=== PATIENT | female | born 1950 | race Caucasian/White ===

== ENCOUNTER → 2017-08-25 | Outpatient (CLI) | payer MEDICARE ==
[~2017-08-25] MED LIST: ASPI-183 PO; COMMODE 3-IN-11 MIS; EZET10 PO; LEVO200T4 PO; LEVO88TA2 PO; MELA5 PO; PANT20TA2 PO; PROT40TA PO; PROZ20CA11 PO; RIVA10 PO; TRAM50 PO; WALKER WHEELS/F1 MIS; Z.0.COMMODE-3:1; Z.0.WALKERFRONT
--- NOTE | 2017-08-25 12:54 | RADRPT ---
EXAM DATE/TIME: 08/25/2017 12:23 [facility] COMPARISON: No previous studies available for comparison. INDICATIONS : Evaluate for pneumonia, pneumothorax or communicable disease. Preop chest for knee replacement on 08/20 06/08. No chest complaints at this time MEDICAL HISTORY : None. SURGICAL HISTORY : shoulder replaced, hip replaced ENCOUNTER: Initial ACUITY: 1 day PAIN SCORE: Non-responsive. LOCATION: Right hip FINDINGS: PA and lateral views of the chest demonstrate the lungs to be symmetrically aerated without evidence of mass, infiltrate or effusion. The cardiomediastinal contours are unremarkable. S-shaped scoliosis and disc centered degenerative changes seen of the spine. CONCLUSION: No evidence of acute cardiopulmonary disease. Scoliosis and degenerative changes of the spine. Catrachito Pike MD on August 25, 2017 at 12:51 Board Certified Radiologist. This report was verified electronically.
[2017-08-25 13:00] LABS: AUTOMATED NEUTROPHIL # 4.5 TH/MM3 (1.8-7.7); BASOPHIL # 0.1 TH/MM3 (0-0.2); BASOPHIL % 0.8 % (0.0-2.0); EOSINOPHIL # 0.2 TH/MM3 (0-0.4); HEMATOCRIT 37.2 % (35.0-46.0); HEMOGLOBIN 13.2 GM/DL (11.6-15.3); LYMPH % 26.8 % (9.0-44.0); MEAN CORPUSCULAR HEMOGLOBIN 32.6 PG (27.0-34.0); MEAN CORPUSCULAR HGB CONC 35.4 % (32.0-36.0); MEAN PLATELET VOLUME 8.1 FL (7.0-11.0); MONOCYTE # 0.7 TH/MM3 (0-0.9); NEUT % 60.4 % (16.0-70.0); PLATELET COUNT 245 TH/MM3 (150-450); RED BLOOD COUNT 4.04 MIL/MM3 (4.00-5.30); WHITE BLOOD COUNT 7.5 TH/MM3 (4.0-11.0)
[2017-08-25 13:02] LABS: PROTHROMBIN TIME - PATIENT 9.7 SEC (9.8-11.6)
[2017-08-25 13:15] LABS: BICARBONATE 28.1 MEQ/L (21.0-32.0); CALCIUM 9.2 MG/DL (8.5-10.1); CREATININE 0.81 MG/DL (0.50-1.00)
[2017-08-25 13:22] LABS: BILIRUBIN, URINE NEG (NEG); BLOOD, URINE NEG (NEG); GLUCOSE,URINE NEG (NEG); KETONE, URINE NEG (NEG); NITRITE,URINE NEG (NEG); SQUAMOUS EPITHELIAL CELL URINE 3 /hpf (0-5); URINE LEUKOCYTE ESTERASE NEG (NEG)
[2017-08-25 13:24] LABS: URINE COLOR STRAW (YELLW/STRAW)
== END ==
LOC: CPRE 11:12
PROVIDERS: ATTEND Orthopaedic Surgery
DX: Z01.812 Encounter for preprocedural laboratory examination (principal); Z01.811 Encounter for preprocedural respiratory examination; M79.609 Pain in unspecified limb; M16.11 Unilateral primary osteoarthritis, right hip
CPT/HCPCS: 36415; 71046; 80048; 81001; 85025; 85610

== ENCOUNTER 2017-08-30 05:21 | Inpatient (IN) | payer MEDICARE ==
--- NOTE | 2017-08-12 12:20 | MH ---
cc: Chapito Bland MD DATE OF ADMISSION: 08/30/2017 SCHEDULED ADMISSION: August, ADMITTING DIAGNOSIS: Severe osteoarthritis of the right hip, pain right hip, gait disturbance. HISTORY: The patient is a 67-year-old white female who was admitted to [facility] in September of 2014 following a 5-year history of severe pain of her left hip as related to osteoarthritis. She underwent a left total hip arthroplasty at that time, which was completed in an uncomplicated manner for which the patient was noted to have done quite well, completing her postoperative rehabilitation and able to resume routine activities. On or about that time she was having some minimal discomfort of her right hip but it was not interfering with her daily routine. She presented to the office in July of this year indicating that she was having rather significant pain involving her right hip, reporting that in December of the previous year she had initiated employment as a waiter/waitress captain where the responsibilities of her job included prolonged standing activities. With the passage of time, she was having increasing difficulty, conforming with this routine that interfered with all weightbearing activities and created difficulty as she conformed to her daily routine, being unable to flex her hip such as in tying her shoes. She had been taking Aleve with limited benefit being noted. She was also aware of a numb and tingling sensation extending into her left foot. She denied any bowel or bladder incontinence. She had to suspend her employment activities because of the increasing pain involving her right hip. At the time of her office evaluation, X-ray studies were completed, which revealed severe degenerative changes of her right hip with pronounced hypertrophic reaction along the margins of the femoral head, both superiorly and inferiorly. These findings were reviewed with the patient and treatment options were reviewed. The pros and cons of continued conservative management versus operative intervention that would involve total hip arthroplasty were outlined in detail. Emphasis was made regarding the fact that the decision to proceed with surgery would be left entirely to the patient's discretion. The patient reported that, based upon her previous experience as related to the process of treatment involving her left hip and subsequent operative intervention with very favorable response being noted, she felt that similar treatment involving her right hip would be the more favorable course of management for long-term benefit and expressed her desire to proceed with surgery at this time. In compliance with her wishes, she was scheduled for admission in order that the above be accomplished. PAST MEDICAL HISTORY, HOSPITALIZATIONS AND SURGERIES: In addition to her left total hip arthroplasty include right rotator cuff repair subsequently resulting in a right reverse shoulder arthroplasty, laparoscopic cholecystectomy, tonsillectomy, D and C and colonoscopy. MEDICAL ILLNESSES: Include hypothyroidism, depression, elevated cholesterol. CURRENT MEDICATIONS: 1. Levothyroxine 88 mcg daily. 2. Fluoxetine 20 mg daily. 3. Ezetimibe 10 mg daily. 4. Pantoprazole 40 mg daily. ALLERGIES: The patient describes DRUG ALLERGIES TO SULFA AND CODEINE which has caused nausea, vomiting and a fatigue sensation. She has experienced significant diarrhea as associated with IRON SUPPLEMENT. She has tolerated morphine for pain management. REVIEW OF SYSTEMS: Wears glasses. No headache, seizure, or syncope. No sinus congestion or epistaxis. Auditory acuity intact. No tinnitus. No bleeding gums or dysphagia. Denies cough, shortness of breath, upper respiratory infection, pneumonia, or tuberculosis. No angina or heart disease. Appetite good. Bowel movements regular. There is a history of ulcers, status post cholecystectomy. No hemorrhoids. Previous urinary tract infection, no kidney stones. No history of fractures. No psychiatric illness. Remaining review of systems is unremarkable and noncontributory. FAMILY HISTORY: The patient is for 23 years. Her is 60 years of age and described as being in good health. She has 2 sons and 2 daughters, all of whom are indicated to be in good health. Her family history is positive for diabetes, heart disease, black lung disease and dementia. SOCIAL HISTORY: The patient completed a high school education. She is employed as a waiter/waitress captain. Denies active use of tobacco. Ethanol consumption on a limited and occasional basis. PHYSICAL EXAMINATION: VITAL SIGNS: Height 5, feet 5 inches, weight 183 pounds. GENERAL: This is an alert, oriented, and responsive 67-year-old white female who sits quietly upon the examination table with no apparent distress. HEAD, EARS, EYES, NOSE, AND THROAT: Pupils are equally round and reactive to light. Extraocular movements full. Sclerae are clear. External nares clear. External auditory canals clear. Dental intact. Mucous membranes pink and moist. Pharynx clear. NECK: Supple active range of motion with no appreciable pain. Carotid pulse is palpable bilaterally. Trachea midline. Thyroid without thyroid enlargement. LUNGS: Clear to auscultation and percussion. BACK: :No CVA tenderness. No discomfort throughout the dorsolumbar spine. HEART: Regular rate and rhythm. No murmur or gallop. ABDOMEN: Soft, nontender, bowel sounds present. PELVIC: Per primary care physician. EXTREMITIES: Right hip: There is no localizing tenderness about the lateral aspect of the hip area. There is limited and restricted mobility of the hip joint in all ranges assessed with pain at the extremes of motion. Discomfort is most pronounced with internal rotation and abduction maneuvering. No sensation of crepitation or instability. Straight leg raising unremarkable at 80 degrees. Brendan sign positive. Distal sensory grossly intact. Antalgic gait. NEUROLOGIC: Cranial nerves II through XII grossly intact. IMPRESSION: Severe osteoarthritis of the right hip, pain right hip, gait disturbance. PLAN: Right total hip arthroplasty. The nature of the planned surgical procedure, the potential complications and risks associated, the expectations of surgery and the consent form were once again reviewed with the patient in the presence of her . Isabel has indicated her full understanding regarding all of the above and given consent to proceed with treatment as outlined. Medical evaluation and clearance for surgery will be completed by her primary care physician, Dr. Humberto Jefferson. Chapito Bland MD NBS/SB , 11:42 AM , 12:19 PM
[~2017-08-30] VITALS: Ht 160 cm; Wt 83.7 kg
[~2017-08-30 05:21] MED LIST changes: -ASPI-183 PO; -COMMODE 3-IN-11 MIS; -LEVO88TA2 PO; -PROT40TA PO; -RIVA10 PO; -TRAM50 PO; -WALKER WHEELS/F1 MIS; -Z.0.COMMODE-3:1; -Z.0.WALKERFRONT
[2017-08-30] MEDS ORDERED: ACETAMINOPHEN 1000 MG/100 ML 100 ML IV ONE (05:44)
[2017-08-30] MEDS ORDERED: CHLORHEXIDINE GLUCONATE 2 % 1 PACK (2 CLOTHS) TOPICAL PRN (06:15)
[2017-08-30] MEDS ORDERED: ceFAZolin 2 GM/NS PREMIX 100 ML IV SCH (06:15)
[2017-08-30] MEDS ORDERED: METOPROLOL TARTRATE 25 MG TAB PO PRN (06:15)
[2017-08-30] MEDS ORDERED: SODIUM CHLORID 0.9% 500 ML IV PRN (06:15)
[2017-08-30] MEDS ORDERED: POVIDONE IODINE 5% (ANTISEPSIS KIT) 4 APPLICATIONS EACH NARE PRN (06:15)
[2017-08-30] MEDS ORDERED: LACTATED RINGER'S 1000 ML IV PRN (06:15)
[2017-08-30] MEDS ORDERED: POVIDONE IODINE 7.5% SCRUB 118 ML BOTTLE TOPICAL SCH (06:15)
[2017-08-30] MEDS ORDERED: ceFAZolin INJ 1,000 MG VIAL ONE (06:18)
[2017-08-30] MEDS ORDERED: APREPITANT 40 MG CAP ONE (06:34)
[2017-08-30] MEDS ORDERED: TRANEXAMIC ACID 1 GM PRIOR TO PROCEDURE IV SCH ×2 (07:00)
[2017-08-30] MEDS ORDERED: DO NOT ADM ANY ANTICOAGULANT DRUGS PRN (09:22)
[2017-08-30] MEDS ORDERED: MIDAZOLAM HCL 2 MG/2 ML VIAL ONE (09:27)
--- NOTE | 2017-08-30 09:28 | HHI.FF ---
Face to Face Verification Diagnosis: (1) Degenerative joint disease (DJD) of hip Physical Therapy Gait training Hip: Total hip, Protocol: Right, Abduction pillow while in bed Right LE Weight Bearing: WB as tolerated Right LE Range of Motion: Active ROM Nursing Dressing Changes: Daily dressing change I have seen patient Isabel aCraballo on 08/30/17. My clinical findings support the need for the requested home health care services because: Limited ability to care for self High risk of falls I certify that my clinical findings support that this patient is homebound because: Post-op weakness Unsteady gait/balance Unsafe to leave home unassisted Chapito Bland MD Aug 30, 2017 09:28
[2017-08-30] MEDS ORDERED: TRANEXAMIC ACID INJ 1,000 MG in SODIUM CHLORIDE 0.9% INJ 100 ML IV SCH (09:30)
[2017-08-30] MEDS ORDERED: MISCELLANEOUS PHARMACY INFORMATION XX SCH (09:30)
[2017-08-30] MEDS ORDERED: ONDANSETRON HCL 4 MG/2 ML VIAL IVP PRN (09:30)
[2017-08-30] MEDS ORDERED: ACETAMINOPHEN 325 MG TAB PO PRN (09:30)
[2017-08-30] MEDS ORDERED: DOCUSATE SODIUM 100 MG CAP PO PRN (09:30)
[2017-08-30] MEDS ORDERED: NALOXONE HCL 0.4 MG/ML AMP IV PUSH PRN (09:30)
[2017-08-30] MEDS: DEXT 5%-NACL 0.45% 1000 ML INJ 1,000 ML IV SCH ×3 (09:50→19:35)
[2017-08-30] MEDS ORDERED: Post-op Orders (for Pharmacy) XX ONE (10:00)
[2017-08-30] MEDS ORDERED: TRANEXAMIC ACID 1 GM POST-OP IV SCH ×2 (10:00)
[2017-08-30] MEDS ORDERED: MORPHINE SULFATE 30 MG/30 ML PCA IV SCH (10:00)
--- NOTE | 2017-08-30 10:11 | MP ---
cc: Chapito Bland MD DATE OF OPERATION: 08/30/2017 PREOPERATIVE DIAGNOSIS: Severe osteoarthritis of the right hip, pain right hip, gait disturbance. POSTOPERATIVE DIAGNOSIS: Severe osteoarthritis of the right hip, pain right hip, gait disturbance. PROCEDURE PERFORMED: Right total hip arthroplasty. SURGEON: Chapito Bland MD ANESTHESIA: General endotracheal. INDICATIONS: A 67-year-old white female who was admitted to the hospital in September 2014 following a 5-year history of severe left hip pain as related to osteoarthritis. At that time, she underwent a left total hip arthroplasty being completed in an uncomplicated manner and the patient having done well thereafter. She completed her postoperative rehabilitation and was able to resume routine activities. On or about that time, she began noting some mild discomfort of her right hip, but at that time was not interfering with her daily routine. She presented to the office in July of this year, indicating that with the passage of time, she was becoming increasingly more symptomatic with pain that was aggravated by weightbearing activities. 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 She has been taking Aleve with limited benefit and she was also aware of a numb and tingling sensation extending into her left foot. She denied any bowel or bladder incontinence. She had to suspend her employment because of increasing pain about her right hip. Her x-ray studies revealed severe degenerative changes of her right hip with pronounced hypertrophic reaction along the margins of the femoral head, both superiorly and inferiorly. The findings were reviewed and treatment options discussed. The pros and cons of continuing with conservative management versus operative intervention involving total hip arthroplasty were outlined. Emphasis was made regarding the fact that the decision to proceed with surgery would be left entirely to the patient's discretion. The patient reported that, based upon her previous experience as related to the process of and treatment involving her left hip and subsequent operative intervention, she was inclined to proceed with operative treatment at this time, being the more favorable course for long-term management. In compliance with her wishes, she was scheduled for admission in order that the above be accomplished. FORMAT: Following the induction of satisfactory general anesthesia by endotracheal intubation as completed per the Department of Anesthesia, the patient was positioned upon the operating table in a left lateral decubitus fashion. The right hip and lower extremity proper were isolated with a U-drape, thereafter being prepped with Betadine solution and draped into a sterile field in the routine manner. Prior to initiation of the actual procedure, the standard timeout protocol was completed. All parameters were appropriately addressed and confirmed by operating room personnel. A standard posterolateral approach to the hip was initiated through a sharp skin incision and developed through underlying subcutaneous tissue with hemostasis maintained by electrocautery. By deepening dissection, the fascia overlying the gluteus musculature was exposed and thereafter sharply incised to the limits of the incision. The underlying gluteus fibers were bluntly divided and by progressive dissection. The short external rotators were identified. The piriformis tendon was utilized as an anatomical landmark and division of these structures was completed in a superior to inferior orientation and reflected medially, exposing the posterior capsule. The sciatic nerve was protected. An L-shaped capsulotomy was accomplished through which a posterior dislocation of the femoral head was completed. Examination revealed severe degenerative changes with significant erosion of articular cartilage and hypertrophic reaction along the margins of the femoral head. The femoral template was positioned for alignment orientation. The neck was scored and thereafter divided with power saw, the amputated segment being passed to the back table as surgical specimen. Attention was initially directed to the proximal femur. Cancellous bone was harvested. The tapered reamer was inserted for alignment orientation. Sequential rasping and broaching was accomplished from 7 through 9 mm with the calcar radha being utilized at the 9 mm stage. The 9 mm stem was determined to be a favorable fit. The trial component being removed, attention was redirected to the acetabulum. The labrum and reactive soft tissue were sharply excised. Progressive reaming was accomplished from 46 through 49 mm. The 50 mm trial shell was positioned and determined to be satisfactory. With all trial components being removed, the wound was copiously irrigated with pulsating antibiotic solution, hemostasis maintained by electrocautery. Harvested cancellous bone was digitally impacted into the depths of the acetabulum and thereafter a 50 mm RingLoc acetabular shell was firmly seated in approximately 45 degrees inclination to the horizontal and slight anteversion. A single 25 mm, 6.5 cancellous screw was inserted superiorly to augment fixation. The permanent high wall acetabular liner was attached to the acetabular shell. Attention returned to the proximal femur. The canal was irrigated and dried and thereafter, the size 9 trial femoral broach was repositioned and a trial reduction followed utilizing a 36 mm modular head with -6 mm neck length adaptor. The hip readily reduced and was carried through a passive range of motion with stability demonstrated at 90 degrees flexion and 45 degrees internal rotation. An open dislocation was completed, the trial components being removed, the canal was thoroughly irrigated and dried and thereafter, the permanent size 9 Echo Bi-[employer] hip standard femoral stem was firmly seated to which, a 36 mm ceramic head with -6 mm neck length adapter was attached, open reduction completed and repeat range of motion again noted stability as previously described. Final irrigation was accomplished, hemostasis maintained by electrocautery. The posterior capsule was repaired with 0 Vicryl suture. Piriformis tendon and short external rotator structures were reapproximated in a similar fashion. Hemovac drain tubes were inserted through superior stab wounds. The fascia of the gluteus musculature was reapproximated with a running 0 Vicryl suture. The remaining portion of the wound was closed in layers in the routine manner, skin margins being reapproximated with a running subcuticular 3-0 Vicryl suture over which Steri-Strips were applied. Xeroform gauze and a bulky dry sterile dressing were placed. The patient was repositioned into a supine orientation where an abduction splint was attached. Anesthesia was discontinued and the patient thus transferred to a hospital stretcher and returned to the recovery room in satisfactory condition, having tolerated her operative procedure well. Estimated blood loss was approximately 250 mL as determined per Anesthesia. All implants were of the Biomet geophysical engineer. MD INA Caal/SB , 09:20 AM , 10:10 AM
--- NOTE | 2017-08-30 10:22 | RADRPT ---
EXAM DATE/TIME: 08/30/2017 09:35 [facility] COMPARISON: No previous studies available for comparison. INDICATIONS : Post op right hip surgery. MEDICAL HISTORY : None. SURGICAL HISTORY : None. Shoulder replaced. Bilateral hip replaced. ENCOUNTER: Initial ACUITY: 1 day PAIN SCORE: Non-responsive. LOCATION: Right hip. FINDINGS: The patient is status post right total hip replacement with prosthesis in good position. No fracture or dislocation is noted. CONCLUSION: Status post right total hip replacement with prosthesis in good position. Kaleb Cain MD on August 30, 2017 at 10:18 Board Certified Radiologist. This report was verified electronically.
[2017-08-30] MEDS ORDERED: ROCURONIUM INJ 50 MG/5 ML SYRINGE IV PUSH ONE (12:00)
[2017-08-30] MEDS ORDERED: LIDOCAINE HCL 1% PF 5 ML SYRINGE OTHER ONE (12:00)
[2017-08-30] MEDS ORDERED: ONDANSETRON HCL 4 MG/2 ML VIAL IV ONE (12:00)
[2017-08-30] MEDS ORDERED: NEOSTIGMINE 5 MG/5 ML SYRINGE IV PUSH ONE (12:00)
[2017-08-30] MEDS ORDERED: GLYCOPYRROLATE 1 MG/5 ML SYRINGE IV PUSH ONE (12:00)
[2017-08-30] MEDS ORDERED: PROPOFOL 200 MG/20 ML AMP IV ONE (12:00)
[2017-08-30] MEDS ORDERED: ePHEDrine/NS 25 MG/5 ML SYRINGE IV ONE (12:00)
[2017-08-30] MEDS ORDERED: DEXAMETHASONE SOD PHOS 4 MG/ML VIAL IV ONE (12:00)
[2017-08-30] MEDS ORDERED: LACTATED RINGER'S 1000 ML INJ 1,000 ML IV ONE (12:00)
[2017-08-30 12:56] VITALS: BP 114/54; PULSE 71; RESP 16; TEMP 97.2; O2SAT 98
[2017-08-30] MEDS: PCA - TOTAL MG MORPHINE DELIVERED PER SHIFT SCH ×2 (14:00→22:00)
--- NOTE | 2017-08-30 14:51 | PD.CONS ---
HPI Service [facility] Consult Requested By Primary Care Physician Humberto Jefferson M.D. Diagnoses: History of Present Illness Mrs. Caraballo is a 67-year-old female. She is admitted secondary to elective right total hip replacement. Baseline conditions or osteoarthritis, hypothyroidism, and hyperlipidemia. Patient has a past history of peptic ulcer disease. She is seen postop and doing well. No nausea or vomiting, pain is controlled. Vital signs are stable. Review of Systems Constitutional: DENIES: Fatigue, Fever, Chills Eyes: DENIES: Diplopia, Eye inflammation, Eye pain Ears, nose, mouth, throat: DENIES: Hearing loss, Vertigo, Nasal discharge Respiratory: DENIES: Cough, Wheezing, Hemoptysis, Shortness of breath Cardiovascular: DENIES: Chest pain, Palpitations, Syncope Gastrointestinal: DENIES: Abdominal pain, Black stools, Bloody stools Musculoskeletal: COMPLAINS OF: Joint pain, Stiffness, Joint Swelling Integumentary: DENIES: Abnormal pigmentation, Pruritus, Rash, Nail changes Hematologic/lymphatic: DENIES: Bruising, Lymphadenopathy Immunologic/allergic: DENIES: Eczema, Urticaria Neurologic: DENIES: Abnormal gait, Headache, Paresthesias Psychiatric: DENIES: Anxiety, Confusion, Hallucinations Past Family Social History Allergies: Coded Allergies: iron (Verified Allergy, Severe, Diarrhea, 08/30/17) Sulfa (Sulfonamide Antibiotics) (Verified Adverse Reaction, Mild, [place], 08/30/17) codeine (Verified Adverse Reaction, Mild, [place], 08/30/17) Past Medical History OA Hypothyroidism PUD HLP Past Surgical History Right rotator cuff surgery Reported Medications Reported Meds & Active Scripts Active Reported Melatonin 5 Mg Tab 5 Mg PO HS Levothyroxine (Levothyroxine Sodium) 200 Mcg Tab 200 Mcg PO DAILY Pantoprazole (Pantoprazole Sodium) 20 Mg Tab 20 Mg PO DAILY Prozac (Fluoxetine HCl) 20 Mg Cap 20 Mg PO DAILY Zetia (Ezetimibe) 10 Mg Tab 10 Mg PO DAILY Active Ordered Medications Administered Medications Medications (Trade) Dose Ordered Sig/Keyonna Route PRN Reason Start Time Stop Time Status Last Admin Dose Admin Lactated Ringer's 1,000 ml @ 30 mls/hr Q24H PRN IV SEE LABEL COMMENTS 08/30/17 06:15 09/02/17 06:14 08/30/17 05:45 Povidone Iodine (Betadine 5% Antisepsis Kit) 1 applic PROGRAM PARAPROFESSIONAL PRN EACH NARE SEE LABEL COMMENTS 08/30/17 06:15 09/02/17 06:14 08/30/17 05:45 Chlorhexidine Gluconate (Chlorhexidine 2% Cloth) 3 pack PROGRAM PARAPROFESSIONAL PRN TOPICAL SEE LABEL COMMENTS 08/30/17 06:15 09/02/17 06:14 08/30/17 05:30 Tranexamic Acid 1000 mg/Sodium Chloride 110 ml @ 220 mls/hr ONCE IV 08/30/17 07:00 08/30/17 21:00 08/30/17 07:11 Tranexamic Acid 1000 mg/Sodium Chloride 110 ml @ 220 mls/hr ONCE IV 08/30/17 10:00 08/30/17 21:00 08/30/17 10:42 Cefazolin/Sodium Chloride 100 ml @ 200 mls/hr ONCE IV 08/30/17 06:15 08/30/17 21:00 08/30/17 07:11 Dextrose/Sodium Chloride 1,000 ml @ 125 mls/hr Q8H IV 08/30/17 10:00 08/30/17 09:50 Cefazolin Sodium 1000 mg/Sodium Chloride 100 ml @ 200 mls/hr Q6H IV 08/30/17 13:00 08/31/17 01:29 08/30/17 14:31 Morphine Sulfate (Morphine 1 Mg/ ml KEYPUNCHER) 30 mg UNSCH IV 08/30/17 10:00 09/01/17 09:29 08/30/17 10:43 KEYPUNCHER Dosage Infused (Pha) 1 Q8HR .XX 08/30/17 14:00 08/30/17 14:00 Family History Myocardial infarction in mother Myocardial infarction in brother Alzheimer's disease in sister Social History No smoking Illicit drug abuse Occasional alcohol use Physical Exam Vital Signs Vital Signs Date Time Temp Pulse Resp B/P (MAP) Pulse Ox O2 Delivery O2 Flow Rate FiO2 08/30/17 14:00 16 08/30/17 12:56 97.2 71 16 114/54 (74) 98 08/30/17 12:54 81 15 98/56 (70) 100 Nasal Cannula 3 08/30/17 11:22 82 15 108/47 (67) 100 Nasal Cannula 3 08/30/17 10:43 16 08/30/17 09:45 74 15 116/61 (79) 100 Nasal Cannula 3 08/30/17 09:30 78 15 111/59 (76) 100 Nasal Cannula 3 08/30/17 09:21 98.6 75 15 114/57 (76) 100 Nasal Cannula 3 08/30/17 06:02 97.9 55 20 157/71 (99) 98 Physical Exam GENERAL: NAD, A&Ox3 HEAD: Normocephalic. NECK: Supple, trachea midline. No lymphadenopathy. EYES: No scleral icterus. No injection or drainage. CARDIOVASCULAR: Regular rate and rhythm without murmurs, gallops, or rubs. RESPIRATORY: Breath sounds equal bilaterally. No accessory muscle use. GASTROINTESTINAL: Abdomen soft, non-tender, nondistended. MUSCULOSKELETAL: No cyanosis, or edema. SKIN: Warm and dry. NEURO: No focal neurological deficitis. Imaging Last Impressions Hip X-Ray 08/30/[id number] Signed Impressions: Service Date/Time: Wednesday, August 30, 2017 09:35 - CONCLUSION: Status post right total hip replacement with prosthesis in good position. Kaleb Cain MD Assessment and Plan Problem List: (1) Aftercare following right hip joint replacement surgery ICD Code: Z47.1 - Aftercare following joint replacement surgery; Z96.641 - Presence of right artificial hip joint (2) Degenerative joint disease (DJD) of hip ICD Code: M16.9 - Degenerative joint disease (DJD) of hip Status: Acute Assessment and Plan 67-year-old female admitted secondary to elective right total hip Osteoarthritis Status post right total hip surgery Continue as needed pain treatments Continue physical therapy Orthopedic surgeons following Follow CBC in a.m. Hypothyroidism Continue baseline treatments Follows in outpatient Hyperlipidemia Continue present treatment Follow as an outpatient History of peptic ulcer disease Follow clinically DVT prophylaxis Deferred to surgical discretion Andrzej Smith MD Aug 30, 2017 14:51
[2017-08-30 16:00] VITALS: BP 112/58; PULSE 80; RESP 16; TEMP 97.4; O2SAT 98
[2017-08-30 16:52] VITALS: O2SAT 98
[2017-08-30] MEDS: ZOLPIDEM TARTRATE 5 MG TAB PO PRN (19:54)
[2017-08-30 20:15] VITALS: BP 109/54; PULSE 76; RESP 16; TEMP 98; O2SAT 97
[2017-08-30] MEDS ORDERED: MAGNESIUM HYDROXIDE SUSP 30 ML CUP PO PRN (23:00)
[2017-08-31] VITALS (8 sets, daily range): BP systolic 102–125; BP diastolic 55–75; PULSE 71–86; RESP 16–19; TEMP 97.3–98.3; O2SAT 95–99
[2017-08-31] MEDS: PCA - TOTAL MG MORPHINE DELIVERED PER SHIFT SCH ×3 (06:00→20:57)
[2017-08-31] MEDS ORDERED: ASPI-183 PO (06:24)
[2017-08-31] MEDS ORDERED: TRAM50 PO (06:24)
[2017-08-31] MEDS ORDERED: WALKER WHEELS/F1 MIS (06:31)
[2017-08-31] MEDS ORDERED: COMMODE 3-IN-11 MIS (06:31)
--- NOTE | 2017-08-31 09:34 | HHI.PR ---
Subjective Remarks Mrs. Caraballo is a 67-year-old female. She is admitted secondary to elective right total hip replacement. Baseline conditions or osteoarthritis, hypothyroidism, and hyperlipidemia. Patient has a past history of peptic ulcer disease. She is seen postop and doing well. No nausea or vomiting, pain is controlled. Vital signs are stable. 4-12 seen sitting in chair next to the bed NO CURRENT COMPLAINTS USING INCENTIVE SPIROMETRY DW RN AND PT AND CM LABS WILL GO TO SNF AFTER DC Objective Vitals Vital Signs Date Time Temp Pulse Resp B/P (MAP) Pulse Ox O2 Delivery O2 Flow Rate FiO2 08/31/17 07:32 97.8 83 19 125/58 (80) 96 08/31/17 06:00 17 08/31/17 04:15 97.6 86 16 125/59 (81) 98 08/31/17 00:10 97.3 71 16 102/75 (84) 95 08/30/17 22:00 18 08/30/17 20:15 98.0 76 16 109/54 (72) 97 08/30/17 19:34 97 Nasal Cannula 2.00 08/30/17 16:52 98 Nasal Cannula 2.00 08/30/17 16:00 97.4 80 16 112/58 (76) 98 08/30/17 14:00 16 08/30/17 12:56 97.2 71 16 114/54 (74) 98 08/30/17 12:54 81 15 98/56 (70) 100 Nasal Cannula 3 08/30/17 11:22 82 15 108/47 (67) 100 Nasal Cannula 3 08/30/17 10:43 16 08/30/17 09:45 74 15 116/61 (79) 100 Nasal Cannula 3 08/30/17 09:30 78 15 111/59 (76) 100 Nasal Cannula 3 I/O 08/30/17 08/30/17 08/30/17 08/31/17 08/31/17 08/31/17 07:00 15:00 23:00 07:00 15:00 23:00 Intake Total 2110 ml 900 ml 1560 ml Output Total 270 ml 0 ml 70 ml Balance 1840 ml 900 ml 1490 ml Intake Oral 960 ml IV Total 310 ml 900 ml 600 ml Other 1800 ml Output Drainage Total 20 ml 0 ml 70 ml Estimated Blood Loss 250 ml # Voids 2 # Bowel Movements 0 Other Results Laboratory Tests Test 4/12/18 04:59 Labs pending Imaging Last Impressions Hip X-Ray 08/30/17 09 Signed Impressions: Service Date/Time: Wednesday, August 30, 2017 09:35 - CONCLUSION: Status post right total hip replacement with prosthesis in good position. Kaleb Cain MD Objective Remarks GENERAL: Awake alert and oriented 3 talkative and cooperative SKIN: Warm and dry. HEAD: Atraumatic. Normocephalic. EYES: Pupils equal and round. No scleral icterus. No injection or drainage. Extraocular muscles intact ENT: No nasal bleeding or discharge. Mucous membranes pink and moist. Tongue is midline NECK: Trachea midline. No JVD. Supple CARDIOVASCULAR: Regular rate and rhythm. S1-S2 no S3-S4 no heave or thrill or rub or gallop RESPIRATORY: No accessory muscle use. Clear to auscultation. Breath sounds equal bilaterally. GASTROINTESTINAL: Abdomen soft, non-tender, nondistended. Hepatic and splenic margins not palpable. MUSCULOSKELETAL: Extremities without clubbing, cyanosis, or edema. No obvious deformities. NEUROLOGICAL: Awake and alert. No obvious cranial nerve deficits. Motor grossly within normal limits. 4 out of 5 muscle strength in the arms and legs. Normal speech. PSYCHIATRIC: Appropriate mood and affect; insight and judgment normal. Medications and IVs Current Medications Acetaminophen 100 ml @ As Directed STK-MED ONCE IV ; Start 08/30/17 at 05:44; Stop 08/30/17 at 05:45; Status DC Lactated Ringer's 1,000 ml @ 30 mls/hr Q24H PRN IV SEE LABEL COMMENTS Last administered on 08/30/17at 05:45; Start 08/30/17 at 06:15; Stop 09/02/17 at 06:14 Sodium Chloride 500 ml @ 30 mls/hr [id number] PRN IV SEE LABEL COMMENTS; Start 04/08 at 06:15; Stop 09/02/17 at 06:14 Metoprolol Tartrate (Lopressor) 25 mg DETECTOR CAR OPERATOR PRN PO SEE LABEL COMMENTS; Start 08/30/17 at 06:15; Stop 09/02/17 at 06:14 Povidone Iodine (Betadine 5% Antisepsis Kit) 1 applic DETECTOR CAR OPERATOR PRN EACH NARE SEE LABEL COMMENTS Last administered on 08/30/17at 05:45; Start 08/30/17 at 06:15 ; Stop 09/02/17 at 06:14 Chlorhexidine Gluconate (Chlorhexidine 2% Cloth) 3 pack DETECTOR CAR OPERATOR PRN TOPICAL SEE LABEL COMMENTS Last administered on 08/30/17at 05:30; Start 08/30/17 at 06:15 ; Stop 09/02/17 at 06:14 Povidone Iodine (Betadine 7.5% Scrub) 1 applic ONCE TOPICAL ; Start 08/30/17 at 06:15; Stop 09/02/17 at 06:14 Tranexamic Acid 1000 mg/Sodium Chloride 110 ml @ 220 mls/hr ONCE IV Last administered on 08/30/17at 07:11; Start 08/30/17 at 07:00; Stop 08/30/17 at 21:00 ; Status DC Tranexamic Acid 1000 mg/Sodium Chloride 110 ml @ 220 mls/hr ONCE IV Last administered on 08/30/17at 10:42; Start 08/30/17 at 10:00; Stop 08/30/17 at 21:00 ; Status DC Cefazolin/Sodium Chloride 100 ml @ 200 mls/hr ONCE IV Last administered on 04/08at 07:11; Start 08/30/17 at 06:15; Stop 08/30/17 at 21:00; Status DC Cefazolin Sodium (Ancef Inj) 2,000 mg STK-MED ONCE .ROUTE Last administered on 08/30/17at 07:36; Start 08/30/17 at 06:18; Stop 08/30/17 at 06:19; Status DC Aprepitant (Emend) 40 mg STK-MED ONCE .ROUTE ; Start 08/30/17 at 06:34; Stop 04/08 at 06:35; Status DC Dextrose/Sodium Chloride 1,000 ml @ 125 mls/hr Q8H IV Last administered on 04/08at 19:35; Start 08/30/17 at 10:00 Cefazolin Sodium 1000 mg/Sodium Chloride 100 ml @ 200 mls/hr Q6H IV Last administered on 08/30/17at 23:56; Start 08/30/17 at 13:00; Stop 08/31/17 at 01:29 ; Status DC Miscellaneous Information (Post-op Orders (for Pharmacy)) STAT ONCE XX ; Start 08/30/17 at 10:00; Stop 08/30/17 at 10:01; Status DC Rivaroxaban (Xarelto) 10 mg Q24H PO ; Start 08/31/17 at 09:00 Miscellaneous Medication ([facility] Pharmacy Information) UNSCH X1 XX ; Start 08/30 at 09:30; Stop 09/01/17 at 09:29 Tramadol HCl (Ultram) 50 mg Q4H PRN PO PAIN LESS THAN 5 ON SCALE; Start at 09:30 Tramadol HCl (Ultram) 100 mg Q4H PRN PO PAIN SCALE 5 TO 10; Start 08/30/17 at 09:30 Acetaminophen (Tylenol) 650 mg Q6H PRN PO FEVER > 101; Start 08/30/17 at 09:30 Tranexamic Acid 1000 mg/Sodium Chloride 110 ml @ 200 mls/hr UNSCH IV ; Start at 09:30; Stop 08/30/17 at 10:02; Status UNV Ondansetron HCl (Zofran Inj) 4 mg Q6H PRN IVP NAUSEA OR VOMITING; Start at 09:30 Docusate Sodium (Colace) 100 mg BID PRN PO CONSTIPATION Last administered on 04/08at 19:36; Start 08/30/17 at 09:30 Zolpidem Tartrate (Ambien) 5 mg HS PRN PO SLEEP Last administered on 08/30/17at 19:54; Start 08/30/17 at 21:00 Naloxone HCl (Narcan Inj) 0.4 mg UNSCH PRN IV PUSH RESPIRATORY RATE LESS THAN 10; Start 08/30/17 at 09:30 Morphine Sulfate (Morphine 1 Mg/ ml [facility]) 30 mg UNSCH IV Last administered on 04/08at 10:43; Start 08/30/17 at 10:00; Stop 09/01/17 at 09:29 [facility] Dosage Infused (Pha) 1 Q8HR .XX Last administered on 08/31/17at 06:00; Start 08/30/17 at 14:00 Midazolam HCl (Versed Inj) 2 mg STK-MED ONCE .ROUTE ; Start 08/30/17 at 09:27; Stop 08/30/17 at 09:28; Status DC Fentanyl Citrate (fentaNYL INJ) 200 mcg STK-MED ONCE .ROUTE ; Start 08/30/17 at 09:27; Stop 08/30/17 at 09:28; Status DC Miscellaneous Information ALL NURSING DEPARTME... UNSCH PRN .XX SEE LABEL COMMENTS; Start 08/30/17 at 09:22; Stop 08/31/17 at 09:21; Status DC Magnesium Hydroxide (Milk Of Magnesia Liq) 30 ml BID PRN PO MILD CONSTIPATION Last administered on 08/31/17at 05:40; Start 08/30/17 at 23:00 A/P Problem List: (1) Aftercare following right hip joint replacement surgery ICD Code: Z47.1 - Aftercare following joint replacement surgery; Z96.641 - Presence of right artificial hip joint (2) Degenerative joint disease (DJD) of hip ICD Code: M16.9 - Degenerative joint disease (DJD) of hip Status: Acute Assessment and Plan 67-year-old female admitted secondary to elective right total hip Osteoarthritis Status post right total hip surgery Continue as needed pain treatments Continue physical therapy Orthopedic surgeons following Follow CBC in a.m. LABS PENDING Hypothyroidism Continue baseline treatments Follows in outpatient LABS PENDING Hyperlipidemia Continue present treatment Follow as an outpatient History of peptic ulcer disease Follow clinically DVT prophylaxis Deferred to surgical discretion Discharge Planning PENDING ORTHO CLEARANCE Problem Qualifiers (1) Degenerative joint disease (DJD) of hip: Qualified Codes: M16.11 - Unilateral primary osteoarthritis, right hip Ozzie Khan DO Aug 31, 2017 09:34
[2017-08-31] MEDS: RIVAROXABAN 10 MG TAB PO SCH (09:39)
[2017-08-31] MEDS: traMADol HCL 50 MG TAB PO PRN ×3 (09:40→22:49)
[2017-08-31] MEDS: DEXT 5%-NACL 0.45% 1000 ML INJ 1,000 ML IV SCH ×3 (09:47→18:44)
[2017-08-31 10:05] LABS: AUTOMATED NEUTROPHIL # 10.3 TH/MM3 (1.8-7.7); BASOPHIL % 0.2 % (0.0-2.0); HEMATOCRIT 29.3 % (35.0-46.0); HEMOGLOBIN 9.9 GM/DL (11.6-15.3); LYMPH % 8.4 % (9.0-44.0); MEAN CELL VOLUME 92.9 FL (80.0-100.0); MEAN CORPUSCULAR HEMOGLOBIN 31.3 PG (27.0-34.0); MEAN CORPUSCULAR HGB CONC 33.7 % (32.0-36.0); MEAN PLATELET VOLUME 7.7 FL (7.0-11.0); MONO % 8.6 % (0.0-8.0); MONOCYTE # 1.1 TH/MM3 (0-0.9); NEUT % 82.8 % (16.0-70.0); PLATELET COUNT 204 TH/MM3 (150-450); RED BLOOD COUNT 3.15 MIL/MM3 (4.00-5.30); WHITE BLOOD COUNT 12.5 TH/MM3 (4.0-11.0)
[2017-08-31 12:15] LABS: ALBUMIN 2.9 GM/DL (3.4-5.0); ALT (GPT) 21 U/L (10-53); AST (GOT) 28 U/L (15-37); BICARBONATE 29.2 MEQ/L (21.0-32.0); CALCIUM 8.5 MG/DL (8.5-10.1); CHLORIDE 103 MEQ/L (98-107); CREATININE 0.78 MG/DL (0.50-1.00); GLOMERULAR FILTRATION RATE 73 ML/MIN (>89); GLUCOSE,RANDOM 119 MG/DL (74-106); MAGNESIUM 2.2 MG/DL (1.5-2.5); SODIUM (NA) 138 MEQ/L (136-145)
[2017-08-31 12:23] LABS: ALKALINE PHOSPHATASE 50 U/L (45-117); BLOOD UREA NITROGEN 14 MG/DL (7-18); FREE T4 1.19 NG/DL (0.76-1.46); TOTAL BILIRUBIN ADULT 0.3 MG/DL (0.2-1.0); TOTAL PROTEIN 5.9 GM/DL (6.4-8.2)
[2017-08-31 16:21] LABS: HEMOGLOBIN A1C 5.6 % (4.3-6.0)
[2017-08-31] MEDS ORDERED: diphenhydrAMINE HCL 25 MG CAP PO PRN (18:30)
[2017-08-31] MEDS: ZOLPIDEM TARTRATE 5 MG TAB PO PRN (21:05)
[2017-09-01 00:25] VITALS: BP 123/60; PULSE 76; RESP 18; TEMP 98.4; O2SAT 94
[2017-09-01] MEDS: traMADol HCL 50 MG TAB PO PRN ×6 (03:33→21:41)
[2017-09-01 08:00] VITALS: BP 97/53; PULSE 63; RESP 16; TEMP 97.7; O2SAT 98
--- NOTE | 2017-09-01 08:17 | MD ---
cc: Chapito Bland MD, George F MD DATE OF DISCHARGE: 09/02/2017 ADMITTING DIAGNOSES: Severe osteoarthritis of the right hip pain, right hip and gait disturbance. DISCHARGE DIAGNOSES: Severe osteoarthritis of the right hip pain, right hip and gait disturbance. HISTORY: A 67-year-old white female with a lengthy history of bilateral hip pain extending back at least 5 years for which she was diagnosed in the past as having osteoarthritis. She had undergone a left total hip arthroplasty in 09/2014 that was completed in an uncomplicated manner with uneventful recovery being noted thereafter. With the passage of time, the patient became progressively more symptomatic with pain about her right hip that was unresponsive to ongoing continued conservative modalities. She had presented to the office in the recent past, at which time, her x-ray studies did reveal severe degenerative changes about the right hip with pronounced hypertrophic reaction along the margins of the femoral head. Findings and treatment options were again reviewed. The pros and cons of continuing with conservative management versus operative intervention that would involve a total hip arthroplasty were outlined in detail. Emphasis was made regarding the fact that the decision to proceed with surgery would be left entirely to the patient's discretion. Based upon her previous experience and the favorable outcome that she had noted from surgery of her left hip. She was ready to proceed in this direction with similar treatment involving her right hip and in this regard, she was scheduled for admission at this time. For additional details with regard to her history in this regard, interested parties would be directed to the documentation of her admitting history. PHYSICAL EXAM: Her physical examination at the time of admission revealed no localizing tenderness about the lateral aspect of the right hip. There was limited and restricted mobility of the hip joint in all ranges assessed with pain at the extremes of motion, discomfort being most pronounced with internal rotation and abduction maneuvering. No sensation of crepitation or instability. Straight leg raising unremarkable at 80 degrees. Brendan's sign positive. Distal sensory grossly intact. Antalgic gait. HOSPITAL COURSE: Prior to admission to the hospital, the patient had undergone medical evaluation and clearance for surgery as completed by her primary care physician, Dr. Humberto Jefferson. She was taken to the operating room on 08/30/2017 and on that date underwent a right total hip arthroplasty completed in an uncomplicated manner. The patient was noted to have tolerated her operative procedure well. Her postoperative course stable thereafter. Hemoglobin and hematocrit assessment postoperatively was 9.9 and 29.3 respectively. The patient was progressively mobilized under the guidance of physical therapy being permitted weightbearing to tolerance about the right lower extremity. Followup examination of her surgical wound noted to be intact, healing favorably with no evidence of infection. Medical followup per the hospitalist service. DVT prophylaxis initiated. Fire Engine Pump Operator consulted to assist with discharge planning. The patient had indicated her desire to be discharged to a rehab facility for continued mobilization. Plans were finalized in this regard and pending medical clearance, she was scheduled for transfer on the third postoperative day, at which time she was making favorable progress with regards to initial rehabilitation program. She was scheduled to be seen in office followup in approximately 4 weeks. CONDITION ON DISCHARGE: Her condition at the time of discharge, stable. PROGNOSIS: Favorable. DISCHARGE MEDICATIONS: Included Ultram 50 mg, #30, refill, x 1; aspirin 325 mg 1 tab twice daily for 4 weeks, #60. Chapito Bland MD NBS/DL , 08:02 AM , 08:16 AM
[2017-09-01] MEDS: RIVAROXABAN 10 MG TAB PO SCH (08:43)
[2017-09-01] MEDS: DEXT 5%-NACL 0.45% 1000 ML INJ 1,000 ML IV SCH ×3 (08:46→19:12)
[2017-09-01] MEDS: PCA - TOTAL MG MORPHINE DELIVERED PER SHIFT SCH ×2 (08:46→19:12)
[2017-09-01 09:28] VITALS: O2SAT 98
[2017-09-01 12:00] VITALS: BP 118/56; PULSE 79; RESP 16; TEMP 97.7; O2SAT 96
--- NOTE | 2017-09-01 15:39 | HHI.PR ---
Subjective Remarks Pain is controlled. Ask for a laxative. Denies any chest pain, shortness of breath, nausea or vomiting. About to go for walk with physical therapy. Objective Vitals Vital Signs Date Time Temp Pulse Resp B/P (MAP) Pulse Ox O2 Delivery O2 Flow Rate FiO2 09/01/17 12:00 97.7 79 16 118/56 (76) 96 09/01/17 09:28 98 21 09/01/17 08:00 98 Room Air 09/01/17 08:00 97.7 63 16 97/53 (68) 98 09/01/17 00:25 98.4 76 18 123/60 (81) 94 08/31/17 20:22 98 21 08/31/17 20:00 98.3 78 18 119/56 (77) 98 08/31/17 15:43 97.8 77 19 111/57 (75) 97 I/O 08/31/17 08/31/17 08/31/17 09/01/17 09/01/17 09/01/17 07:00 15:00 23:00 07:00 15:00 23:00 Intake Total 1560 ml 950 ml 960 ml Output Total 70 ml 40 ml 0 ml Balance 1490 ml 950 ml -40 ml 960 ml Intake Oral 960 ml 950 ml 960 ml IV Total 600 ml Output Drainage Total 70 ml 40 ml 0 ml # Voids 2 3 5 # Bowel Movements 0 1 1 Result Diagram: 08/31/17 0857 08/31/17 1105 Imaging Last Impressions Hip X-Ray 08/30/17 0922 Signed Impressions: Service Date/Time: Wednesday, August 30, 2017 09:35 - CONCLUSION: Status post right total hip replacement with prosthesis in good position. Kaleb Cain MD Objective Remarks GENERAL: Awake alert, answers questions appropriately. CARDIOVASCULAR: Regular rate and rhythm. RESPIRATORY: No accessory muscle use. Clear to auscultation. Breath sounds equal bilaterally. GASTROINTESTINAL: Abdomen soft, non-tender, nondistended. MUSCULOSKELETAL: Extremities without edema. No obvious deformities. NEUROLOGICAL: Awake and alert. Moves lower extremities. Dressing over the right thigh/hip dry clean and intact A/P Problem List: (1) Aftercare following right hip joint replacement surgery ICD Code: Z47.1 - Aftercare following joint replacement surgery; Z96.641 - Presence of right artificial hip joint (2) Degenerative joint disease (DJD) of hip ICD Code: M16.9 - Degenerative joint disease (DJD) of hip Status: Acute Assessment and Plan 67-year-old female admitted secondary to elective right total hip Osteoarthritis Status post right total hip surgery POD 2 Continue as needed pain treatments Continue physical therapy management per Orthopedic surgeons Repeat H&H in AM. Hypothyroidism Continue home meds Hyperlipidemia home meds History of peptic ulcer disease Follow clinically DVT prophylaxis on xarelto per ortho Discharge Planning medically doing well. d/c per ortho. Problem Qualifiers (1) Degenerative joint disease (DJD) of hip: Qualified Codes: M16.11 - Unilateral primary osteoarthritis, right hip Josefina Jones MD Sep 01, 2017 15:39
[2017-09-01 16:00] VITALS: BP 131/63; PULSE 73; RESP 16; TEMP 98.5; O2SAT 99
[2017-09-01] MEDS: DOCUSATE SODIUM 50 MG/SENNA 8.6 MG TAB PO SCH (17:20)
[2017-09-01] MEDS: POLYETHYLENE GLYCOL 17 GM PKG PO SCH (17:20)
[2017-09-01 20:03] VITALS: BP 108/56; PULSE 78; RESP 17; TEMP 97.6; O2SAT 97
[2017-09-01] MEDS: ZOLPIDEM TARTRATE 5 MG TAB PO PRN (21:40)
[2017-09-02 00:05] VITALS: BP 103/56; PULSE 74; RESP 17; TEMP 98; O2SAT 96
[2017-09-02] MEDS: traMADol HCL 50 MG TAB PO PRN ×4 (01:27→13:05)
[2017-09-02 06:29] VITALS: BP 117/54; PULSE 72; RESP 18; TEMP 98.2; O2SAT 96
[2017-09-02 07:54] LABS: HEMOGLOBIN 8.6 GM/DL (11.6-15.3)
--- NOTE | 2017-09-02 08:09 | HHI.PR ---
Subjective Remarks In the chair. Says she feels good. Pain si controlled by meds. Has a small BM in the morning. No n/v/d/c. No fever or chills. Objective Vitals Vital Signs Date Time Temp Pulse Resp B/P (MAP) Pulse Ox O2 Delivery O2 Flow Rate FiO2 09/02/17 06:29 98.2 72 18 117/54 (75) 96 09/02/17 00:05 98.0 74 17 103/56 (72) 96 09/01/17 20:05 Room Air 09/01/17 20:03 97.6 78 17 108/56 (73) 97 09/01/17 16:00 98.5 73 16 131/63 (85) 99 09/01/17 12:00 97.7 79 16 118/56 (76) 96 09/01/17 09:28 98 21 I/O 09/01/17 09/01/17 09/01/17 09/02/17 09/02/17 09/02/17 07:00 15:00 23:00 07:00 15:00 23:00 Intake Total 960 ml 800 ml 480 ml Output Total 0 ml Balance 960 ml 800 ml 480 ml Intake Oral 960 ml 800 ml 480 ml Output Drainage Total 0 ml # Voids 5 4 2 # Bowel Movements 1 0 Result Diagram: 09/02/17 0635 08/31/17 1105 Imaging Last Impressions Hip X-Ray 08/30/17 09 Signed Impressions: Service Date/Time: Wednesday, August 30, 2017 09:35 - CONCLUSION: Status post right total hip replacement with prosthesis in good position. Kaleb aCin MD Objective Remarks GENERAL: Awake alert, answers questions appropriately. CARDIOVASCULAR: Regular rate and rhythm. RESPIRATORY: No accessory muscle use. Clear to auscultation. Breath sounds equal bilaterally. GASTROINTESTINAL: Abdomen soft, non-tender, nondistended. MUSCULOSKELETAL: Extremities without edema. No obvious deformities. NEUROLOGICAL: Awake and alert. Moves lower extremities. Dressing over the right thigh/hip dry clean and intact A/P Problem List: (1) Aftercare following right hip joint replacement surgery ICD Code: Z47.1 - Aftercare following joint replacement surgery; Z96.641 - Presence of right artificial hip joint (2) Degenerative joint disease (DJD) of hip ICD Code: M16.9 - Degenerative joint disease (DJD) of hip Status: Acute Assessment and Plan 67-year-old female admitted secondary to elective right total hip Osteoarthritis Status post right total hip surgery POD 2 Continue as needed pain treatments Continue physical therapy management per Orthopedic surgeons Repeat H&H in AM. Hypothyroidism Continue home meds Hyperlipidemia home meds History of peptic ulcer disease Follow clinically DVT prophylaxis on xarelto per ortho Discharge Planning medically stable. Cleared from medical standpoint for DC. DC per ortho. Problem Qualifiers (1) Degenerative joint disease (DJD) of hip: Qualified Codes: M16.11 - Unilateral primary osteoarthritis, right hip Hattie Mondragon MD Sep 02, 2017 08:09
[2017-09-02] MEDS: POLYETHYLENE GLYCOL 17 GM PKG PO SCH (09:00)
[2017-09-02] MEDS: DOCUSATE SODIUM 50 MG/SENNA 8.6 MG TAB PO SCH (09:13)
[2017-09-02] MEDS: RIVAROXABAN 10 MG TAB PO SCH (09:13)
== END 2017-09-02 14:14 | DRG 470 ==
LOC: HSDI 05:21 → N06A 12:58
PROVIDERS: ADMIT Orthopaedic Surgery; ATTEND Orthopaedic Surgery
PROC: 0SR903A Replacement of Right Hip Joint with Ceramic Synthetic Substitute, Uncemented, Open Approach (ICD-10-PCS; principal; 2017-08-30 06:51)
DX: M16.11 Unilateral primary osteoarthritis, right hip (principal); Z96.642 Presence of left artificial hip joint; E03.9 Hypothyroidism, unspecified; E78.5 Hyperlipidemia, unspecified; Z87.11 Personal history of peptic ulcer disease
CPT/HCPCS: 73501; 80053; 83036; 83735; 84100; 84439; 84443; 85014; 85018; 85025; 86850; 86900; 86901; 88304; 88305; 88311; 94150; C1776; J0131; J0690; J1100; J2250; J2270; J2405; J2710; J3010; J7120; J8501